=== PATIENT | female | born 1990 | race African-American/Black ===

== ENCOUNTER 2018-12-29 17:49 | Observation (INO) | payer BC ==
[~2018-12-29] VITALS: Ht 154.9 cm; Wt 64.4 kg
[2018-12-29 18:37] VITALS: BP 105/55
[2018-12-29] MEDS: D5.45%NS/KCL 20MEQ 1,000 ML IV SCH (19:00)
[2018-12-29] MEDS ORDERED: CITRATE OF MAGNESIA 300ML BOTTLE PO ONE ×2 (19:00→21:00)
--- NOTE | 2018-12-29 19:00 | NUR ---
GOT REPORT FROM PREVIOUS NURSE. PATIENT IN BED. DAUGHTER AT THE BEDSIDE. CALL LIGHT WITHIN REACH.
[2018-12-29 20:29] VITALS: BP 108/64
[2018-12-29] MEDS ORDERED: PNEUMOCOCCAL VACCINE POLYVALENT 23 MCG/0.5 ML VIAL IM SCH (22:14)
[2018-12-29] MEDS ORDERED: PEG (High)/E-LYTE SOLN 4,000 ML BTL PO ONE (22:45)
[2018-12-29] MEDS ORDERED: PROMETHAZINE HCL 25 MG TAB PO PRN (22:45)
--- NOTE | 2018-12-29 22:45 | NUR ---
CALLED AND TALKED TO DR. GALLAGHER ABOUT PATIENT FEELING NAUSEOUS AND WANTS NAUSEA MEDICATION. PATIENT ALSO MENTIONED THAT SHE TAKES CITRATE OF MAGNESIUM AT HOME AND IT DOES NOT HELP HER SO WANTS SOMETHING ELSE. DR. GALLAGHER ORDERED PHENERGAN 12.5 MG IV Q4H AND 4 L OF COLYTE.
[2018-12-29] MEDS: PROMETHAZINE 12.5MG/ NACL 0.9% 12.5 MG/50 ML BAG IV PRN (23:59)
[2018-12-30] VITALS (8 sets, daily range): BP systolic 85–114; BP diastolic 54–67
[2018-12-30] MEDS ORDERED: METRONIDAZOLE500 MG PO (01:11)
[2018-12-30] MEDS ORDERED: CIPRO500 MG PO (01:11)
[2018-12-30] MEDS ORDERED: KETOROLAC60 MG/2 ML PO (01:11)
[2018-12-30] MEDS ORDERED: METOCLOPRAMIDE10 MG PO (01:11)
[2018-12-30] MEDS ORDERED: PANTOPRAZOLE SO40 MG PO (01:11)
[2018-12-30] MEDS ORDERED: DICYCLOMINE HCL20 MG PO (01:11)
[2018-12-30] MEDS ORDERED: ONDANSETRON2 MG/1 ML IV (01:11)
[2018-12-30] MEDS ORDERED: MELATONIN3 MG PO (01:11)
[2018-12-30] MEDS ORDERED: OXYCODONE-ACET1 EAC1 PO (01:11)
[2018-12-30] MEDS ORDERED: NORETHINDRONE0.35 MG PO (01:11)
[2018-12-30] MEDS ORDERED: AMITIZA24 MCG PO (01:11)
[2018-12-30] MEDS ORDERED: PROMETHAZINE HC25 M1 PO (01:11)
[2018-12-30] MEDS ORDERED: DOCUSATE SODIU100 MG PO (01:11)
[2018-12-30] MEDS ORDERED: DOXYCYCLINE HY100 MG PO (01:11)
--- NOTE | 2018-12-30 01:28 | NUR ---
CALLED AND TALKED TO DR. GALLAGHER. TOLD THE DR THAT PATIENT DOES NOT WANT COLYTE AND RATHER HAVE SOAP ENEMA. TOLD THE DR THAT WE NEED LABS ESPECIALLY POTASSIUM LEVEL FOR D45%NS/KCL 20MEq, HE TOLD ME DO NOT GIVE THE IV FLUIDS AND MAKE SURE THE PATIENT STAYS HYDRATED. CALL LIGHT WITHIN REACH
[2018-12-30] MEDS: D5.45%NS/KCL 20MEQ 1,000 ML IV SCH (03:00)
[2018-12-30] MEDS: PANTOPRAZOLE SOD 40 MG TABEC PO SCH (06:20)
--- NOTE | 2018-12-30 06:30 | NUR ---
Patient had one milk of molasses and now she is having a bowel movement.
--- NOTE | 2018-12-30 07:12 | NUR ---
Gave report to oncoming nurse. call chan within reach. patient in bed. Daughter at bedside.
--- NOTE | 2018-12-30 12:21 | NUR ---
SOCIAL WORK INITIAL ASSESSMENT Vessel Operator to bedside to discuss plan of care with patient/family. CM/SW role and care transitions discussed. Anticipated discharge plan discussed along with duration of care. CM/SW discussed patients right to make decisions in care. CM/SW work hours given. Patient lives: IN [address] [facility] Admit/Transfer: DIRECT ADMIT FROM DR JACOBSEN POA/Emergency contact: MOTHER EDEN PEPE [phone] Current/Previous Home Health: NONE PCP/Follow-up Care: MANJIT Current/Previous DME: NONE Other Services: NONE Employment Status: SETUP OPERATOR AT [employer] Areas of Concerns: NONE Referral Needs: NONE Education Needs: NONE IMM/GUDINO given and signed (if applicable): NA Goal for discharge: RETURN HOME WITH NO NEEDS CM/SW left business card at the bedside with contact information. Name and number was also written on the patients whiteboard. Patient verbalized understanding of discussion. CM will follow-up with ongoing discharge and transition of care needs.
[2018-12-30] MEDS: PROMETHAZINE 12.5MG/ NACL 0.9% 12.5 MG/50 ML BAG IV PRN ×2 (13:20→21:24)
--- NOTE | 2018-12-30 13:40 | NUR ---
Milk of Molasses administered at time. Pt tolerated administration well. No c/o cramping. Monitoring for BM.
[2018-12-30] MEDS ORDERED: DEXTROSE 5%/0.45% SOD CHL 1,000 ML IV SCH (15:45)
[2018-12-30] MEDS ORDERED: DEXTROSE 5%/0.45% SOD CHL 1,000 ML IV ONE (16:15)
[2018-12-30] MEDS ORDERED: DOCUSATE SODIUM 100 MG CAP PO ONE (18:45)
--- NOTE | 2018-12-30 19:30 | NUR ---
PATIENT C/O HEADACHE, SHE HAS NO PAIN MEDICATION ON ORDER. CALL AND SPOKE WITH ATTENDING PHYSICIAN REGARDING PAIN MANAGEMENT, ORDER RECEIVED FOR TYLENOL. WILL ADMINISTER THE MEDICATION ONCE THE ORDER HAS BEEN VERIFIED BY THE PHARMACIST.
[2018-12-30] MEDS: ACETAMINOPHEN 325 MG TAB PO PRN (19:45)
--- NOTE | 2018-12-30 19:45 | NUR ---
IV #[id number] INSERTED TO THE RIGHT HAND, PATIENT TOLERATED PROCEDURE WELL. IV FLUID INFUSING ORDERED, TYLENOL ADMINISTERED ORDERED FOR ABDOMINAL PAIN.
--- NOTE | 2018-12-30 23:31 | History and Physical ---
HISTORY OF PRESENT ILLNESS: Ms. Mendoza is a young 28-year-old, whom we saw her in the office with severe constipation. She claimed at the office that she has not had a bowel movement in the past 13 days. She is very uncomfortable due to lack of bowel movement. She feels on and off nausea and vomiting when she eats, subjective fever. No bleeding. No reflux symptoms. She claimed that her problem began in 2011 after having severe diarrhea, nausea, and vomiting. She also was hospitalized multiple times and seen by different physicians with different diagnoses. Initially, she was diagnosed with Crohn's disease and later ulcerative colitis. She was placed on Humira for sometime and Remicade for sometime, but later on, both were discontinued after the original diagnosis was questioned. In 2013, she started having more symptoms of constipation. She can go as far as 10 days without bowel movement and then she will develop watery bowel movement. She also hospitalized multiple times. Multiple tests and workup done with nothing was revealing. During her past, she had multiple GI specialists. Her last upper endoscopy and colonoscopy were done by Dr. Ferrari several months ago, whose report did not show any sign of inflammatory disease. Only one small tubular adenomatous polyp was removed and no signs of H. pylori. She also had a CT scan of the abdomen and pelvis in November of this year, which showed adynamic ileus and some fluid-filled bowel loops. CURRENT MEDICATIONS: Zofran, metoclopramide, contraceptive, Bentyl, melatonin. She is on finishing course of Cipro and Flagyl after last visit presentation with abdominal discomfort. PAST MEDICAL HISTORY: Endometriosis and Crohn's disease, which later was put in question. PAST SURGICAL HISTORY: She had endometrial ablation, colonoscopy. FAMILY HISTORY: None. ALLERGIES: NONE. SOCIAL HISTORY: She has 1 kid. She is single. FAMILY HISTORY: Noncontributory. REVIEW OF SYSTEMS: As mentioned above, otherwise unremarkable. PHYSICAL EXAMINATION: GENERAL: She is awake, alert, and oriented. VITAL SIGNS: Temperature 98, pulse 79, and blood pressure 109/67. NECK: Supple. No node. LUNGS: Clear to auscultation. HEART: Regular rate and regular rhythm. ABDOMEN: Soft, not distended, mildly tender. No masses. No organomegaly. Bowel sounds present, but very quiet. RECTUM: Done in the office, showed no infection. LABORATORY DATA: Her lab tests, which all done as an outpatient in the office, showed normal celiac disease panel. Comprehensive panel are normal. Her sedimentation rate is normal. Her magnesium is normal. TSH normal. Amylase and lipase normal. CBC normal. Urinalysis negative. negative. HIV negative. ATIYA normal. ASSESSMENT: Mostly likely idiopathic constipation and impaction. We admitted her to the hospital and planned to work through different laxatives in order to make her go to the bathroom efficiently. After she get relieved from her severe constipation, we will start her Linzess everyday. Keena Sesay MD RD/MODL /[id number]
--- NOTE | 2018-12-31 00:15 | NUR ---
NO RESPIRATORY DISTRESS OBSERVED, PATIENT HAS HAD TWO LOOSE BOWEL MOVEMENTS. SHE C/O NAUSEA AND ABDOMINAL PAIN, PHENERGAN AND TYLENOL NOT DUE YET.
[2018-12-31] MEDS: ACETAMINOPHEN 325 MG TAB PO PRN (01:45)
[2018-12-31] MEDS: PROMETHAZINE 12.5MG/ NACL 0.9% 12.5 MG/50 ML BAG IV PRN ×2 (01:45→09:40)
--- NOTE | 2018-12-31 01:46 | NUR ---
PATIENT C/O ABDOMINAL PAIN AND NAUSEA, MEDICATED WITH TYLENOL AND PHENERGAN ORDERED. CALL LIGHT WITHIN EASY REACH, INSTRUCTED TO CALL FOR ASSISTANCE NEEDED.
[2018-12-31 04:25] VITALS: BP 96/66
[2018-12-31] MEDS: PANTOPRAZOLE SOD 40 MG TABEC PO SCH (06:27)
--- NOTE | 2018-12-31 06:55 | NUR ---
HANDOFF REPORT RECEIVED. PATIENT AWARE OF CHANGE AND IN NO DISTRESS. CALL WANG WITHIN REACH, BED IN LOWEST POSITION AND DAUGHTER AT BEDSIDE.
[2018-12-31 07:30] VITALS: BP 98/51
[2018-12-31 08:19] VITALS: BP 98/51
[2018-12-31 10:15] LABS: CLARITY,URINE SL CLOUDY (CLEAR); COLOR,URINE YELLOW (YELLOW)
[2018-12-31 10:16] LABS: BILIRUBIN,URINE NEGATIVE (NEGATIVE); KETONES,URINE NEGATIVE (NEGATIVE); LEUKOCYTE ESTERASE ,URINE TRACE (NEGATIVE); NITRITE,URINE NEGATIVE (NEGATIVE); PROTEIN,URINE DIPSTICK NEGATIVE (NEGATIVE); URINE UROBILINOGEN 0.2 mg/dL (0.2 - 1)
[2018-12-31 10:21] LABS: BACTERIA,URINE RARE /HPF; RBC,URINE 21-50 /HPF (0-5)
[2018-12-31 10:22] LABS: EPITHELIAL CELLS,URINE RARE /LPF
[2018-12-31 12:09] VITALS: BP 109/57
[2018-12-31] MEDS ORDERED: SODIUM CHLORIDE 0.9% 250ML 250 ML ONE (13:10)
--- NOTE | 2018-12-31 15:42 | NUR ---
discharge instructions given to patient, verbalized understanding. IV discontinued at this time, catheter in tact and small dressing applied. patient to be wheeled from floor to personal auto to return home
== END 2018-12-31 16:10 | disposition home or self-care (01) ==
LOC: IMCU 17:49
PROVIDERS: ADMIT Internal Medicine Gastroenterology; ATTEND Internal Medicine Gastroenterology
DX: K56.41 Fecal impaction (principal); Z23 Encounter for immunization
CPT/HCPCS: 81001; 90732; 96367; G0378 ×3; J2550 ×2; J7050; S0164 ×2